=== PATIENT | female | born 1965 ===

== ENCOUNTER 2017-03-15 12:59 | Emergency (ER) | payer OTHER ==
[2017-03-15 13:12] VITALS: TEMP 98.2
--- NOTE | 2017-03-15 14:12 | C.PDOC ---
History Of Present Illness 51 yr old female presents to the ER stating 2 days ago while at work she slipped and fell, landing on her right side. Patient reports now she has pain to the back and right ribs, associated with pleuritic pain worse with movement. Otherwise, patient denies chest pain, SOB, abdominal pain, neck pain, headache, weakness or numbness. (Bette Mcarthur) History Per: Patient History/Exam Limitations: no limitations Onset/Duration Of Symptoms: Days (2) Current Symptoms Are (Timing): Still Present Time Seen by Provider: 03/15/17 13:18 Chief Complaint (Nursing): Breast Problem Past Medical History Reviewed: Historical Data, Nursing Documentation, Vital Signs - Medical History PMH: HTN Family History: States: No Known Family Hx - Social History Hx Alcohol Use: No Hx Substance Use: No - Immunization History Hx Tetanus Toxoid Vaccination: No Hx Influenza Vaccination: No Hx Pneumococcal Vaccination: No Vital Signs: Last Vital Signs Temp 98.2 F 03/15/17 13:05 Pulse 68 03/15/17 13:05 Resp 16 03/15/17 13:05 BP 120/83 03/15/17 13:05 Pulse Ox 98 03/15/17 14:57 Review Of Systems Except As Marked, All Systems Reviewed And Found Negative. Cardiovascular: Positive for: Other ((+) Right rib pain). Negative for: Chest Pain Respiratory: Negative for: Shortness of Breath Gastrointestinal: Negative for: Abdominal Pain Musculoskeletal: Positive for: Back Pain. Negative for: Neck Pain Neurological: Negative for: Weakness, Numbness, Headache Physical Exam - Physical Exam Appears: Non-toxic, No Acute Distress Skin: Warm, Dry, No Rash Head: Atraumatic, Normacephalic Oral Mucosa: Moist Neck: Normal, Normal ROM, Supple Chest: Tenderness (Right, lateral rib tenderness) Cardiovascular: Rhythm Regular, No Murmur Respiratory: Normal Breath Sounds, No Rales, No Rhonchi, No Stridor, No Wheezing Gastrointestinal/Abdominal: Normal Exam, Soft, No Tenderness, No Guarding, No Rebound Extremity: Normal ROM, No Swelling Neurological/Psych: Oriented x3, Normal Speech, Normal Motor ED Course And Treatment O2 Sat by Pulse Oximetry: 98 (RA) Pulse Ox Interpretation: Normal Disposition - Disposition Disposition Time: 14:57 - Disposition Disposition: HOME/ ROUTINE Condition: FAIR Additional Instructions: [facility]. 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 - Scribe Statement The provider has reviewed the documentation as recorded by the Scribe - Scribe Statement Sabrina Siu All medical record entries made by the Scribe were at my direction and personally dictated by me. I have reviewed the chart and agree that the record accurately reflects my personal performance of the history, physical exam, medical decision making, and the department course for this patient. I have also personally directed, reviewed, and agree with the discharge instructions and disposition. (Bette Mcarthur) Physician Patient Turnover Patient Signed Over To: Faye Adams Handoff Comments: pending xrays Addendum Addendum: 03/15/17 15:59 Patient was endorsed to me by LINDA Mcarthur at the end of her shift. Patient states she tripped and fell at work 2 days prior, landing on her knees and hands. Patient now complains of right sided rib pain. Area is tender along the intercostal spaces 3 and 4, associated with a muscle spasm along the divine spinal area. Rib series was done with no significant findings. Patient was discharged home with instructions to follow up with her PMD and to continue use of medications as directed. (Faye Adams)
--- NOTE | 2017-03-15 14:56 | C.PDOC ---
Time Seen by Provider: 03/15/17 13:18 Chief Complaint (Nursing): Breast Problem Past Medical History Vital Signs: Last Vital Signs Temp 98.2 F 03/15/17 13:05 Pulse 68 03/15/17 13:05 Resp 16 03/15/17 13:05 BP 120/83 03/15/17 13:05 Pulse Ox 98 03/15/17 13:05 - Medical History PMH: HTN - Social History Hx Alcohol Use: No Hx Substance Use: No - Immunization History Hx Tetanus Toxoid Vaccination: No Hx Influenza Vaccination: No Hx Pneumococcal Vaccination: No ED Course And Treatment O2 Sat by Pulse Oximetry: 98 Disposition - Disposition Disposition Time: 14:56 Condition: FAIR - Clinical Impression Clinical Impression: Rib contusion Physician Patient Turnover Patient Signed Over To: Faye Adams Handoff Comments: Pending Xrays
[2017-03-15 16:19] VITALS: BP 118/72; PULSE 70; RESP 18; O2SAT 97
--- NOTE | 2017-03-15 16:50 | RAD ---
PROCEDURE: Radiographs of the Chest and Right Ribs. HISTORY: rib injury, pleuritic pain COMPARISON: None available. TECHNIQUE: Frontal radiograph of the chest and multiple oblique radiographs of the right ribs were obtained. FINDINGS: RIGHT RIBS: No fracture or focal lesion visualized. LUNGS: Clear. PLEURA: No pneumothorax or pleural fluid. CARDIOVASCULAR: Normal sized heart. No pulmonary vascular congestion. OTHER FINDINGS: Thoracic spondylosis ; cholecystectomy clips IMPRESSION: Unremarkable radiographs of the chest and right ribs. No right rib fracture.
== END 2017-03-15 16:19 | disposition home or self-care (01) ==
LOC: C.ER 12:59
DX: S20.211A Contusion of right front wall of thorax, initial encounter (principal); W01.0XXA Fall on same level from slipping, tripping and stumbling without subsequent striking against object, initial encounter